=== PATIENT | female | born 1985 | race Hispanic/Latino ===

== ENCOUNTER 2021-05-29 10:44 | Emergency (ER) | payer SELFPAY ==
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
[2021-05-29 11:58] LABS: Absolute Lymphocytes (CBC) 2.1 K/uL (0.7-4.9); Basophils % 0.7 % (0-1.3); Hematocrit 27.7 % (36.0-45.0); Lymphocytes % 27.7 % (15.3-44.8); Protime INR 0.88; RBC Red Blood Cell Count 3.67 M/uL (3.86-4.86)
[2021-05-29 12:17] LABS: ALT/SGPT 33 U/L (12-78); AST/SGOT 16 U/L (15-37); Albumin 3.4 g/dL (3.4-5.0); Alkaline Phosphatase 107 U/L (45-117); BUN Blood Urea Nitrogen 10 mg/dL (7-18); Bicarbonate 25 mmol/L (21-32); Bilirubin Direct < 0.1 mg/dL (0-0.2); Bilirubin Total 0.1 mg/dL (0.2-1.0); Glucose Level 101 mg/dL (74-106); Magnesium 2.2 mg/dL (1.8-2.4); NT PRO-BNP 11 pg/mL (<125); Potassium 4.2 mmol/L (3.5-5.1); Protein, Total 7.8 g/dL (6.4-8.2); Sodium Level 138 mmol/L (136-145); Troponin (Emerg Dept Use Only) < 0.02 ng/mL (0.0-0.045)
--- NOTE | 2021-05-29 12:31 | RAD REPORT ---
EXAM DESCRIPTION: RAD - Chest Single View - 05/29/2021 12:23 pm CLINICAL HISTORY: CHEST PAIN COMPARISON: No comparisons FINDINGS: Lines: None. Lungs: No evidence of edema or pneumonia. Pleural: No significant pleural effusions or pneumothorax. Cardiac: The heart size is within normal limits. Bones: No acute fractures. Other: IMPRESSION: No acute cardiopulmonary disease.
[2021-05-29] MEDS ORDERED: ONDANSETRON 4 MG/2 ML VIAL ONE (12:43)
[2021-05-29] MEDS ORDERED: FAMOTIDINE 20 MG/2 ML VIAL IV ONE (12:44)
[2021-05-29] MEDS ORDERED: KETOROLAC 30 MG/ML INJ ONE (12:44)
--- NOTE | 2021-05-29 15:16 | EDPHYS ---
Physician Documentation [facility] Name: Siobhan Garcia Age: 35 yrs Sex: Female : 1985 Arrival Date: 05/29/2021 Time: 10:46 Bed 15 Private MD: ED Physician Trip Samayoa HPI: 05/29 16:57 This 35 yrs old Female presents to ER via Ambulatory with complaints of Chest kdr Pain. 16:57 The patient or guardian reports chest pain that is located primarily in the substernal kdr area, anterior chest wall. The pain does not radiate. Associated signs and symptoms: Pertinent positives: shortness of breath, Pain with breathing, Pertinent negatives: cough, diaphoresis, dizziness, headache, lower extremity swelling, lightheadedness, nausea, near syncope, palpitations, recent travel. The chest pain is described as aching, sharp. Duration: The patient or guardian reports multiple episodes, that are intermittent, that wax and wane, with no pattern, Seem to be related with deep breath and turning and movement of her torso.. Modifying factors: The symptoms are alleviated by nothing. the symptoms are aggravated by cough, deep breath, movement. Severity of pain: At its worst the pain was mild just prior to arrival, in the emergency department the pain is unchanged. The patient has not experienced similar symptoms in the past. The patient has not recently seen a physician. 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 - Social history:: Smoking status: Patient reports the use of cigarette tobacco products, denies chronic smoking, but will smoke occasionally. ROS: 16:57 Constitutional: Negative for fever, chills, and weight loss, Eyes: Negative for injury, kdr pain, redness, and discharge, Neck: Negative for injury, pain, and swelling, Cardiovascular: Negative for chest pain, palpitations, and edema, Respiratory: Negative for shortness of breath, cough, wheezing, and pleuritic chest pain, Abdomen/GI: Negative for abdominal pain, nausea, vomiting, diarrhea, and constipation, Back: Negative for injury and pain, MS/Extremity: Negative for injury and deformity, Skin: Negative for injury, rash, and discoloration, Neuro: Negative for headache, weakness, numbness, tingling, and seizure activity. Psych: Negative for depression, anxiety, suicide ideation, homicidal ideation, and hallucinations, Allergy/Immunology: Negative for hives, rash, and allergies, Endocrine: Negative for neck swelling, polydipsia, polyuria, polyphagia, and marked weight changes, Hematologic/Lymphatic: Negative for swollen nodes, abnormal bleeding, and unusual bruising. 16:57 : Positive for vaginal bleeding. Exam: 12:54 ECG was reviewed by the Attending Physician. kdr 16:57 Constitutional: This is a well developed, well nourished patient who is awake, alert, kdr and in no acute distress. Head/Face: Normocephalic, atraumatic. Eyes: Pupils equal round and reactive to light, extra-ocular motions intact. Lids and lashes normal. Conjunctiva and sclera are non-icteric and not injected. Cornea within normal limits. Periorbital areas with no swelling, redness, or edema. Neck: Trachea midline, no thyromegaly or masses palpated, and no cervical lymphadenopathy. Supple, full range of motion without nuchal rigidity, or vertebral point tenderness. No Meningismus. Chest/axilla: Normal chest wall appearance and motion. Nontender with no deformity. No lesions are appreciated. Cardiovascular: Regular rate and rhythm with a normal S1 and S2. No gallops, murmurs, or rubs. Normal PMI, no JVD. No pulse deficits. Respiratory: Lungs have equal breath sounds bilaterally, clear to auscultation and percussion. No rales, rhonchi or wheezes noted. No increased work of breathing, no retractions or nasal flaring. Abdomen/GI: Soft, non-tender, with normal bowel sounds. No distension or tympany. No guarding or rebound. No evidence of tenderness throughout. Back: No spinal tenderness. No costovertebral tenderness. Full range of motion. Skin: Warm, dry with normal turgor. Normal color with no rashes, no lesions, and no evidence of cellulitis. MS/ Extremity: Pulses equal, no cyanosis. Neurovascular intact. Full, normal range of motion. Neuro: Awake and alert, GCS 15, oriented to person, place, time, and situation. Cranial nerves II-XII grossly intact. Motor strength 5/5 in all extremities. Sensory grossly intact. Cerebellar exam normal. Normal gait. Psych: Awake, alert, with orientation to person, place and time. Behavior, mood, and affect are within normal limits. Vital Signs: 11:14 BP 129 / 71; Pulse 95; Resp 14; Temp 97.7(TE); Pulse Ox 99% on R/A; Weight 80.74 kg; ss Height 4 ft. 11 in. (149.86 cm); Pain 6/10; 12:11 BP 124 / 58; Pulse 73; Resp 17; Pulse Ox 100% ; Pain 7/10; eo2 13:00 BP 121 / 69; Pulse 75; Resp 13; Pulse Ox 99% ; Pain 4/10; eo2 14:00 BP 117 / 72; Pulse 79; Resp 12; Pulse Ox 99% ; Pain 3/10; eo2 15:47 BP 122 / 72; Pulse 68; Resp 15; Pulse Ox 99% ; Pain 0/10; eo2 11:14 Body Mass Index 35.95 (80.74 kg, 149.86 cm) ss MDM: 15:16 Patient medically screened. kdr 16:57 Data reviewed: vital signs, nurses notes, lab test result(s), EKG, radiologic studies. kdr Data interpreted: case monitor: rate is 68 beats/min, rhythm is regular, with no ectopy, Interpretation: normal rate, normal rhythm. Counseling: I had a detailed discussion with the patient and/or guardian regarding: the historical points, exam findings, and any diagnostic results supporting the discharge/admit diagnosis, lab results, radiology results, the need for outpatient follow up. 05/29 11:39 Order name: Basic Metabolic Panel; Complete Time: 13:32 kj1 05/29 11:39 Order name: CBC with Diff; Complete Time: 13:32 kj1 05/29 11:39 Order name: LFT's; Complete Time: 13:32 kj1 05/29 11:39 Order name: Magnesium; Complete Time: 13:32 kj1 05/29 11:39 Order name: NT PRO-BNP; Complete Time: 13:32 kj1 05/29 11:39 Order name: PT-INR; Complete Time: 13:32 kj1 05/29 11:39 Order name: Troponin (emerg Dept Use Only); Complete Time: 13:32 kj1 05/29 11:39 Order name: XRAY Chest (1 view); Complete Time: 13:32 kj1 05/29 11:39 Order name: EKG; Complete Time: 11:40 kj1 05/29 11:39 Order name: Cardiac monitoring; Complete Time: 11:39 kj1 05/29 13:58 Order name: Troponin (emerg Dept Use Only); Complete Time: 15:14 kdr 05/29 11:39 Order name: EKG - Nurse/Tech; Complete Time: 11:39 kj1 05/29 11:39 Order name: IV Saline Lock; Complete Time: 11:39 kj1 05/29 11:39 Order name: Labs collected and sent; Complete Time: 11:39 kj1 EC:54 Rate is 84 beats/min. Rhythm is regular, Sinus Rhythm with No ectopy. QRS [place] is kdr Normal. [place] interval is normal. QRS interval is normal. QT interval is normal. Clinical impression: NSR w/ Non-specific ST/T Changes. Administered Medications: 12:50 Drug: Pepcid (famotidine) 20 mg Route: IVP; Site: right antecubital; eo2 13:50 Follow up: Response: No adverse reaction; Marked relief of symptoms eo2 12:50 Drug: Zofran (Ondansetron) 4 mg Route: IVP; Site: right antecubital; eo2 13:50 Follow up: Response: No adverse reaction; Nausea is decreased eo2 12:50 Drug: Ketorolac 15 mg Route: IVP; Site: right antecubital; eo2 13:50 Follow up: Response: No adverse reaction; Pain is decreased eo2 Disposition Summary: 05/29/21 15:16 Discharge Ordered Location: Home kdr Problem: new kdr Symptoms: have improved kdr Condition: Stable kdr Diagnosis - Chest pain, unspecified kdr - Anemia, unspecified kdr Followup: kdr - With: Private Physician - When: 2 - 3 days - Reason: If symptoms return, Further diagnostic work-up, Recheck today's complaints, Continuance of care, Re-evaluation by your physician Discharge Instructions: - Discharge Summary Sheet kdr - Anemia kdr - Nonspecific Chest Pain, Adult, Odaf-it-Autw kdr Forms: - Medication Reconciliation Form kdr - Thank You Letter kdr - Work release form eb Prescriptions: - Ibuprofen 600 mg Oral Tablet - take 1 tablet by ORAL route every 6 hours As needed take with food; 30 tablet; kdr Refills: 0, Product Selection Permitted - Medrol (Pete) 4 mg Oral Tablets, Dose Pack - take 1 tablet by ORAL route as directed - follow package instructions; 1 kdr packet; Refills: 0, Product Selection Permitted Signatures: Dispatcher [employer] Trip Ngo MD MD kdr Marcela Interiano, VARUN RN Beryl Nagy kj1 Sarah Bustamante RN RN eo2
--- NOTE | 2021-05-29 15:16 | ER ---
Nurse's Notes [facility] Name: Siobhan Garcia Age: 35 yrs Sex: Female : 1985 Arrival Date: 05/29/2021 Time: 10:46 Bed 15 Private MD: Diagnosis: Chest pain, unspecified;Anemia, unspecified Presentation: 05/29 11:14 Chief complaint: Patient states: CP that began last night. Worse when taking a deep ss breath. Coronavirus screen: Client denies travel out of the [place] in the last 14 days. Ebola Screen: Patient denies exposure to infectious person. Patient denies travel to an Ebola-affected area in the 21 days before illness onset. Initial Sepsis Screen: Does the patient meet any 2 criteria? No. Patient's initial sepsis screen is negative. Does the patient have a suspected source of infection? No. Patient's initial sepsis screen is negative. Risk Assessment: Do you want to hurt yourself or someone else? Patient reports no desire to harm self or others. Onset of symptoms was May 28, 2021. 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 - Social history:: Smoking status: Patient reports the use of cigarette tobacco products, denies chronic smoking, but will smoke occasionally. Screenin:11 Abuse screen: Denies threats or abuse. Nutritional screening: No deficits noted. eo2 Tuberculosis screening: No symptoms or risk factors identified. Fall Risk None identified. Assessment: 12:36 General: Appears in no apparent distress. distressed, Behavior is calm, cooperative. eo2 Pain: Complains of pain in Mid chest pain Pain does not radiate. Pain began last night. Neuro: No deficits noted. Denies dizziness, headache. Cardiovascular: Reports chest pain, nausea, shortness of breath, Heart tones S1 S2 Capillary refill < 3 seconds Patient's skin is warm and dry. Rhythm is sinus rhythm. Respiratory: Reports shortness of breath Airway is patent Respiratory effort is even, unlabored, relaxed, Respiratory pattern is regular, symmetrical, Breath sounds are clear bilaterally. GI: Bowel sounds present X 4 quads. Reports nausea. 12:52 Derm: Rash noted that is ring worm appearin circular rash noted to mid chest- pt states eo2 she's using a cream for it. 12:56 Reassessment: Pt denies being , reports she's had a tubal ligation. eo2 Vital Signs: 11:14 BP 129 / 71; Pulse 95; Resp 14; Temp 97.7(TE); Pulse Ox 99% on R/A; Weight 80.74 kg; ss Height 4 ft. 11 in. (149.86 cm); Pain 6/10; 12:11 BP 124 / 58; Pulse 73; Resp 17; Pulse Ox 100% ; Pain 7/10; eo2 13:00 BP 121 / 69; Pulse 75; Resp 13; Pulse Ox 99% ; Pain 4/10; eo2 14:00 BP 117 / 72; Pulse 79; Resp 12; Pulse Ox 99% ; Pain 3/10; eo2 15:47 BP 122 / 72; Pulse 68; Resp 15; Pulse Ox 99% ; Pain 0/10; eo2 11:14 Body Mass Index 35.95 (80.74 kg, 149.86 cm) ss Vitals: 12:11 Cardiac Rhythm Assessment Regular Sinus rhythm. eo2 ED Course: 10:46 Patient arrived in ED. mr 11:15 Triage completed. ss 11:15 Arm band placed on right wrist. ss 11:30 Trip Samayoa MD is Attending Physician. kdr 11:40 Initial lab(s) drawn, by ED staff, sent to lab. Inserted saline lock: 20 gauge in right kj1 antecubital area, using aseptic technique. Blood collected. 11:44 Sarah Bustamante RN is Primary Nurse. eo2 12:11 Patient has correct armband on for positive identification. Placed in gown. Bed in low eo2 position. Call light in reach. Side rails up X 1. district supervisor on. Pulse ox on. NIBP on. Door closed. Noise minimized. Warm blanket given. 12:11 No provider procedures requiring assistance completed. Patient maintains SpO2 eo2 saturation greater than 95% on room air. 12:23 XRAY Chest (1 view) In Process Unspecified. EDMS 15:47 IV discontinued, intact. eo2 Administered Medications: 12:50 Drug: Pepcid (famotidine) 20 mg Route: IVP; Site: right antecubital; eo2 13:50 Follow up: Response: No adverse reaction; Marked relief of symptoms eo2 12:50 Drug: Zofran (Ondansetron) 4 mg Route: IVP; Site: right antecubital; eo2 13:50 Follow up: Response: No adverse reaction; Nausea is decreased eo2 12:50 Drug: Ketorolac 15 mg Route: IVP; Site: right antecubital; eo2 13:50 Follow up: Response: No adverse reaction; Pain is decreased eo2 Outcome: 15:16 Discharge ordered by . kdr 15:47 Discharged to home ambulatory. eo2 15:47 Condition: stable 15:47 Discharge instructions given to patient, Instructed on discharge instructions, follow up and referral plans. medication usage, Demonstrated understanding of instructions, follow-up care, medications, Prescriptions given X 2. 15:48 Patient left the ED. eo2 Signatures: Dispatcher [employer] EDMS Trip Samayoa MD MD kdr Rivera, Mary mr Marcela Interiano RN RN ss Jackson, Kandis kj1 Sarah Bustamante RN RN eo2 Corrections: (The following items were deleted from the chart) 12:52 12:35 Also complains of shortness of breath, eo2 eo2 12:53 12:35 Also complains of eo2 eo2
[2021-05-29 16:01] VITALS: TEMP 97.7
[2021-05-29 16:14] VITALS: O2SAT 99
[2021-05-29 16:17] VITALS: BP 122/72
== END 2021-05-29 15:48 | disposition home or self-care (01) ==
LOC: ER 10:44
DX: R07.9 Chest pain, unspecified (principal); D64.9 Anemia, unspecified; F17.210 Nicotine dependence, cigarettes, uncomplicated
CPT/HCPCS: 36415; 71045; 80048; 80076; 83735; 83880; 84484; 85025; 85610; 93005; 96374; 96375; 99285; J2405

== ENCOUNTER 2021-07-27 15:06 | Emergency (ER) | payer SELFPAY ==
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
[2021-07-27 15:40] LABS: Absolute Lymphocytes (CBC) 3.3 K/uL (0.7-4.9); Lymphocytes % 36.4 % (15.3-44.8); MPV 8.2 fL (7.6-11.3); RBC Red Blood Cell Count 3.66 M/uL (3.86-4.86)
[2021-07-27 15:52] LABS: Protime INR 1.05
[2021-07-27 16:06] LABS: Albumin 3.4 g/dL (3.4-5.0); BUN Blood Urea Nitrogen 13 mg/dL (7-18); Bicarbonate 27 mmol/L (21-32); Glucose Level 110 mg/dL (74-106); Magnesium 1.9 mg/dL (1.8-2.4); Potassium 3.5 mmol/L (3.5-5.1); Sodium Level 138 mmol/L (136-145)
[2021-07-27 16:14] LABS: ALT/SGPT 30 U/L (12-78); AST/SGOT 18 U/L (15-37); Alkaline Phosphatase 87 U/L (45-117); Bilirubin Direct < 0.1 mg/dL (0-0.2); Bilirubin Total 0.2 mg/dL (0.2-1.0); NT PRO-BNP 30 pg/mL (<125); Protein, Total 7.5 g/dL (6.4-8.2)
--- NOTE | 2021-07-27 17:03 | RAD REPORT ---
EXAM DESCRIPTION: CT - Chest For Pe Angio - 07/27/2021 4:45 pm CLINICAL HISTORY: Chest pain COMPARISON: None. TECHNIQUE: Dynamically enhanced axial 3 mm thick images of the chest were obtained during administra tion of <100> mL Isovue 370 IV contrast. Coronal and oblique reconstruction images were generated and reviewed. Exam utilizes a protocol for optimal evaluation of pulmonary arterial tree. Maximum intensity projections 3D imaging was utilized All CT scans are performed using dose optimization technique as appropriate and may include automated exposure control or mA/KV adjustment according to patient size. FINDINGS: A pulmonary embolus is not seen. A thoracic aortic aneurysm is not noted. Bovine aortic A pleural effusion is not seen. A pericardial effusion is not seen. A lung consolidation is not present. IMPRESSION: Negative for a pulmonary embolism.
--- NOTE | 2021-07-27 17:05 | RAD REPORT ---
EXAM DESCRIPTION: Spring Single View07/27/2021 4:59 pm CLINICAL HISTORY: Chest pain COMPARISON: 2020 FINDINGS: The lungs appear clear of acute infiltrate. The heart is normal size IMPRESSION: No acute abnormalities displayed
[2021-07-27 17:22] LABS: Barbiturates NEGATIVE (NEGATIVE); Benzodiazepines NEGATIVE (NEGATIVE); Cocaine NEGATIVE (NEGATIVE); METHAMPHETAM NEGATIVE (NEGATIVE); Methadone NEGATIVE (NEGATIVE); Opiates POSITIVE (NEGATIVE); Phencyclidine NEGATIVE (NEGATIVE); THC Cannibis NEGATIVE (NEGATIVE)
--- NOTE | 2021-07-27 17:31 | ER ---
Nurse's Notes [facility] Name: Siobhan Garcia Age: 35 yrs Sex: Female : 1985 Arrival Date: 07/27/2021 Time: 15:08 Bed 24 Private MD: Diagnosis: Chest pain, unspecified Presentation: 07/27 15:20 Chief complaint: Patient states: Chest pain/pressure that started earlier today. ww Coronavirus screen: Vaccine status: Patient reports being unvaccinated. Client denies travel out of the [place] in the last 14 days. Ebola Screen: Patient negative for fever greater than or equal to 101.5 degrees Fahrenheit, and additional compatible Ebola Virus Disease symptoms Patient denies travel to an Ebola-affected area in the 21 days before illness onset. Initial Sepsis Screen: Does the patient meet any 2 criteria? No. Patient's initial sepsis screen is negative. Does the patient have a suspected source of infection? No. Patient's initial sepsis screen is negative. Risk Assessment: Do you want to hurt yourself or someone else? Patient reports no desire to harm self or others. Onset of symptoms was July 27, 2021. 15:20 Method Of Arrival: Ambulatory 15:20 Acuity: PARRIS 3 ww Triage Assessment: 15:21 General: Appears comfortable, Behavior is cooperative. Pain: Complains of pain in ww chest. Neuro: Level of Consciousness is awake, alert, obeys commands, Oriented to person, place, time, situation, Gait is steady, Speech is normal. Cardiovascular: Capillary refill < 3 seconds Patient's skin is warm and dry. Chest pain quality is pressure. Respiratory: Airway is patent Respiratory effort is even, unlabored, Respiratory pattern is regular, symmetrical. GI: No signs and/or symptoms were reported involving the gastrointestinal system. : No signs and/or symptoms were reported regarding the genitourinary system. Derm: Skin is healthy with good turgor, Rash noted that is red, chest wall. 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 - Social history:: Smoking status: Patient reports the use of cigarette tobacco products. Screenin:23 Abuse screen: Denies threats or abuse. Denies injuries from another. Nutritional ww screening: No deficits noted. Tuberculosis screening: No symptoms or risk factors identified. Fall Risk None identified. Assessment: 15:39 General: Appears in no apparent distress. Behavior is calm, cooperative, drowsy. Pain: ss7 Complains of pain in chest Pain radiates to bilateral shoulders. Neuro: No deficits noted. Cardiovascular: Reports chest pain, Heart tones S1 S2 Rhythm is sinus tachycardia. Respiratory: No deficits noted. Breath sounds are clear bilaterally. GI: No deficits noted. : No deficits noted. EENT: No deficits noted. Derm: No deficits noted. Musculoskeletal: No deficits noted. 17:42 Pain:. ss7 17:43 Pain: Pain began gradually. 7 Vital Signs: 15:20 BP 124 / 57; Pulse 113; Resp 18; Pulse Ox 100% on R/A; Weight 83.91 kg; Height 4 ft. 11 ww in. (149.86 cm); 15:41 BP 108 / 54; Pulse 100; Resp 18; Pulse Ox 100% ; ss7 17:41 BP 104 / 65; Pulse 83; Resp 18; Pulse Ox 100% ; ss7 15:20 Body Mass Index 37.37 (83.91 kg, 149.86 cm) ED Course: 15:08 Patient arrived in ED. mr 15:11 Clif Zepeda PA is PHCP. jr8 15:11 Christian Ortez MD is Attending Physician. jr8 15:21 Triage completed. ww 15:21 Arm band placed on left wrist. ww 15:23 engine monitor on. Pulse ox on. NIBP on. ww 15:23 EKG done, by ED staff. ww 15:39 Basic Metabolic Panel Sent. ss7 15:39 CBC with Diff Sent. ss7 15:39 LFT's Sent. ss7 15:39 Magnesium Sent. ss7 15:39 NT PRO-BNP Sent. ss7 15:39 PT-INR Sent. ss7 15:39 Troponin HS Sent. ss7 16:01 Notified Nurse Practitioner and/or Physician Firmware Test Engineer of a critical lab result(s), d ll1 dimer 903. 16:45 CT Chest For PE Angio In Process Unspecified. EDMS 16:59 XRAY Chest (1 view) In Process Unspecified. EDMS 17:30 Ammon Treadwell MD is Referral Physician. jr8 17:42 Patient has correct armband on for positive identification. Bed in low position. Call ss7 light in reach. 17:42 No provider procedures requiring assistance completed. Inserted saline lock: 20 gauge ss7 in left antecubital area, using aseptic technique. 17:42 IV discontinued, intact. Patient maintains SpO2 saturation greater than 95% on room air.ss7 Administered Medications: No medications were administered Outcome: 17:30 Discharge ordered by . jr8 17:42 Discharged to home ambulatory. ss7 17:42 Condition: good 17:42 Discharge instructions given to patient. 17:43 Patient left the ED. ss7 Signatures: Dispatcher [employer] EDMD uJan DavidBelinda mr ZepedaClif PA PA jr8 Linda Liu RN RN ll1 Keely Gould RN RN ww Smith, Shana, RN RN ss7
--- NOTE | 2021-07-27 17:31 | EDPHYS ---
Physician Documentation [facility] Name: Siobhan Garcia Age: 35 yrs Sex: Female : 1985 Arrival Date: 07/27/2021 Time: 15:08 Bed 24 Private MD: ED Physician Christian Ortez HPI: 07/27 16:12 This 35 yrs old Female presents to ER via Ambulatory with complaints of Chest jr8 Pain, Shoulder Pain. 16:12 The patient or guardian reports chest pain that is located primarily in the substernal jr8 area. The pain radiates to the left shoulder, neck. Associated signs and symptoms: Pertinent positives: shortness of breath. The chest pain is described as stabbing. Duration: The patient or guardian reports a single episode, that is still ongoing. Modifying factors: The symptoms are alleviated by nothing. the symptoms are aggravated by deep breath. Severity of pain: At its worst the pain was moderate in the emergency department the pain is unchanged. The patient has not experienced similar symptoms in the past. The patient has not recently seen a physician. Stated that pain started 2 hours ago. 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 - Social history:: Smoking status: Patient reports the use of cigarette tobacco products. ROS: 16:12 Eyes: Negative for injury, pain, redness, and discharge, ENT: Negative for injury, jr8 pain, and discharge, Neck: Negative for injury, pain, and swelling, Abdomen/GI: Negative for abdominal pain, nausea, vomiting, diarrhea, and constipation, Back: Negative for injury and pain, MS/Extremity: Negative for injury and deformity, Skin: Negative for injury, rash, and discoloration, Neuro: Negative for headache, weakness, numbness, tingling, and seizure. 16:12 Cardiovascular: Positive for chest pain, Negative for edema, orthopnea, palpitations, paroxysmal nocturnal dyspnea. 16:12 Respiratory: Positive for shortness of breath. Exam: 16:12 Constitutional: This is a well developed, well nourished patient who is awake, alert, jr8 and in no acute distress. Neck: Trachea midline, no thyromegaly or masses palpated, and no cervical lymphadenopathy. Supple, full range of motion without nuchal rigidity, or vertebral point tenderness. No Meningismus. Chest/axilla: Normal chest wall appearance and motion. Nontender with no deformity. No lesions are appreciated. Respiratory: Lungs have equal breath sounds bilaterally, clear to auscultation and percussion. No rales, rhonchi or wheezes noted. No increased work of breathing, no retractions or nasal flaring. Abdomen/GI: Soft, non-tender, with normal bowel sounds. No distension or tympany. No guarding or rebound. No evidence of tenderness throughout. Back: No spinal tenderness. No costovertebral tenderness. Full range of motion. Skin: Warm, dry with normal turgor. Normal color with no rashes, no lesions, and no evidence of cellulitis. MS/ Extremity: Pulses equal, no cyanosis. Neurovascular intact. Full, normal range of motion. Neuro: Awake and alert, GCS 15, oriented to person, place, time, and situation. Cranial nerves II-XII grossly intact. Motor strength 5/5 in all extremities. Sensory grossly intact. 16:12 Cardiovascular: Rate: tachycardic, Rhythm: regular, Pulses: Pulses are 2+ in right radial artery and left radial artery. Heart sounds: normal, normal S1and S2, no S3 or S4, no murmur, no rub, no gallop, Edema: is not appreciated. 17:07 ECG was reviewed by the Attending Physician. [facility] Vital Signs: 15:20 BP 124 / 57; Pulse 113; Resp 18; Pulse Ox 100% on R/A; Weight 83.91 kg; Height 4 ft. 11 ww in. (149.86 cm); 15:41 BP 108 / 54; Pulse 100; Resp 18; Pulse Ox 100% ; ss7 17:41 BP 104 / 65; Pulse 83; Resp 18; Pulse Ox 100% ; ss7 15:20 Body Mass Index 37.37 (83.91 kg, 149.86 cm) MDM: 15:11 Patient medically screened. [facility] 17:29 Data reviewed: vital signs, nurses notes, lab test result(s), EKG, radiologic studies, [facility] CT scan, plain films. Data interpreted: Pulse oximetry: on room air is 100 %. Interpretation: normal. Counseling: I had a detailed discussion with the patient and/or guardian regarding: the historical points, exam findings, and any diagnostic results supporting the discharge/admit diagnosis, lab results, radiology results, the need for outpatient follow up, a internet project manager, a family practitioner, to return to the emergency department if symptoms worsen or persist or if there are any questions or concerns that arise at home. Special discussion: Based on the patient's history, exam, and Dx evaluation, there is no indication for emergent intervention or inpatient Tx. It is understood by the patient/guardian that if the Sx's persist or worsen they need to return immediately for re-evaluation. 07/27 15:19 Order name: Basic Metabolic Panel; Complete Time: 16:07/27 15:19 Order name: CBC with Diff; Complete Time: 15:48 07/27 15:19 Order name: LFT's; Complete Time: 16:07/27 15:19 Order name: Magnesium; Complete Time: 16:07/27 15:19 Order name: NT PRO-BNP; Complete Time: 16:07/27 15:19 Order name: PT-INR; Complete Time: 16:07/27 15:19 Order name: Troponin HS; Complete Time: 16:07/27 15:19 Order name: XRAY Chest (1 view); Complete Time: 17:07/27 15:19 Order name: EKG; Complete Time: 15:07/27 15:19 Order name: Cardiac monitoring; Complete Time: 15:07/27 15:19 Order name: EKG - Nurse/Tech; Complete Time: 15:07/27 15:19 Order name: DD; Complete Time: 16:07/27 15:19 Order name: UDS; Complete Time: 17:07/27 16:02 Order name: CT Chest For PE Angio; Complete Time: 17:07/27 15:19 Order name: IV Saline Lock; Complete Time: 15:07/27 15:19 Order name: Labs collected and sent; Complete Time: 15: jr8 07/27 15:19 Order name: O2 Per Protocol; Complete Time: :39 jr8 07/27 15:19 Order name: O2 Sat Monitoring; Complete Time: :39 jr8 EC:07 Rate is 120 beats/min. Rhythm is regular, Sinus tachycardia. QRS [place] is Normal. [place] jr8 interval is normal at 132 msec. QRS interval is normal at 80 msec. QT interval is normal at 446 msec. No Q waves. T waves are Flattened in lead III. No ST changes noted. Clinical impression: NSR w/ Non-specific ST/T Changes. Interpreted by me. Reviewed by me. Administered Medications: No medications were administered Disposition Summary: 07/27/21 17:30 Discharge Ordered Location: Home jr Problem: new jr8 Symptoms: have improved jr8 Condition: Stable jr8 Diagnosis - Chest pain, unspecified jr8 Followup: jr8 - With: Ammon Treadwell MD - When: 2 - 3 days - Reason: Recheck today's complaints, Continuance of care, Re-evaluation by your physician Discharge Instructions: - Discharge Summary Sheet jr8 - Nonspecific Chest Pain, Adult jr8 Forms: - Medication Reconciliation Form jr8 - Thank You Letter jr8 - Antibiotic Education jr8 - Prescription Opioid Use jr8 Addendum: 07/30/2021 23:12 Co-signature as Attending Physician, Christian Ortez MD I agree with the assessment and r n plan of care. Attestation: The patient's history, exam findings, diagnostics, and a summary of any interventions or procedures was reviewed in detail with Clif GRUBER. Signatures: Dispatcher [employer] EDChristian Francis MD MD rn Roszak, Josh, PA PA jr8 Keely Gould RN RN ww
[2021-07-27 17:52] VITALS: O2SAT 100
[2021-07-27 17:55] VITALS: BP 104/65
== END 2021-07-27 17:43 | disposition home or self-care (01) ==
LOC: ER 15:06
DX: R07.9 Chest pain, unspecified (principal); Z72.0 Tobacco use
CPT/HCPCS: 36415; 71045; 71275; 80048; 80076; 80307; 83735; 83880; 84484; 85025; 85379; 85610; 93005; 99285; Q9967